=== PATIENT | male | born 2000 | race Caucasian/White ===

== ENCOUNTER 2021-03-26 12:30 | Emergency (ER) | payer OTHER ==
[~2021-03-26] VITALS: Wt 72.1 kg
[2021-03-26 13:15] LABS: BILIRUBIN Negative (Negative); BLOOD Negative (Negative); CLARITY Clear (Clear); COLOR Yellow (Yellow); GLUCOSE Negative (Negative); KETONE Negative (Negative); LEUKO ESTERASE 1+ (Negative); NITRITE Negative (Negative); SPECIFIC GRAVITY <= 1.005 (1.001-1.030); UROBILINOGEN 0.2 E.U./dl (0.0-1.0)
[2021-03-26 13:17] LABS: PH 8.5 (4.5-8.0)
[2021-03-26 13:18] LABS: ALBUMIN 4.4 gm/dl (3.1-4.5); ALKALINE PHOSPHATASE 94 U/L (45-117); BUN 6 mg/dl (7-24); CHLORIDE 107 mmol/L (98-107); CREATININE 0.98 mg/dL (0.70-1.30); POTASSIUM 3.7 mmol/L (3.5-5.1); SGOT/AST 50 IU/L (3-35); SGPT/ALT 72 U/L (12-78); SODIUM 139 mmol/L (136-145)
[2021-03-26 13:19] LABS: ETHYL ALCOHOL < 3.0 mg/dl (<3)
[2021-03-26 13:31] LABS: BASO % 0.5 % (0.0-1.0); EOS # 0.1 10*3/uL (0.0-0.4); EOS % 0.7 % (1.0-4.0); HEMATOCRIT 49.1 % (42.0-52.0); LYMPH # 1.9 10*3/uL (1.3-4.4); LYMPH % 25.1 % (27.0-41.0); MEAN CELL VOLUME 91.3 fl (80.0-94.0); MEAN CORPUSCULAR HGB 33.1 pg (27.0-31.0); MEAN CORPUSCULAR HGB CONC 36.3 g/dl (33.0-37.0); MEAN PLATELET VOLUME 9.6 fl (9.6-12.3); MONO # 0.5 10*3/uL (0.1-1.0); MONO % 6.8 % (3.0-9.0); NEUT # 5.1 10*3/uL (2.3-7.9); NEUT % 66.5 % (47.0-73.0); PLATELET COUNT AUTOMATED 307 10*3/uL (130-400); RED BLOOD COUNT 5.38 10*6/uL (4.50-5.90); RED CELL DISTRI WIDTH 13.9 % (0-14.5); WHITE BLOOD COUNT 7.6 10*3/uL (4.8-10.8)
[2021-03-26 13:44] LABS: BACTERIA TRACE; WBC 0-2 wbc/hpf (0-5)
[2021-03-26 13:49] LABS: URINE AMPHETAMINES < 1000 (1000ng/ml); URINE BARBITURATES < 200 (200ng/ml); URINE BENZODIAZEPINES < 200 (200ng/ml); URINE CANNABINOIDS (THC) < 50 (50ng/ml); URINE COCAINE < 300 (300ng/ml); URINE METHADONE < 300 (300ng/ml); URINE OPIATES < 300 (300ng/ml)
[2021-03-26 13:50] LABS: URINE PHENCYCLIDINE < 25 (25ng/ml)
== END 2021-03-26 14:32 | disposition home or self-care (01) ==
LOC: ED 12:30
PROVIDERS: Student in an Organized Health Care Education/Training Program
DX: R51.9 Headache, unspecified (principal); R42 Dizziness and giddiness

== ENCOUNTER 2022-07-16 13:42 | Emergency (ER) | payer OTHER ==
[~2022-07-16] VITALS: Ht 175.2 cm; Wt 63.5 kg
[2022-07-16 14:57] LABS: BASO % 0.3 % (0.0-1.0); EOS # 0.1 10*3/uL (0.0-0.4); EOS % 1.7 % (1.0-4.0); HEMATOCRIT 48.4 % (42.0-52.0); LYMPH # 1.6 10*3/uL (1.3-4.4); LYMPH % 24.9 % (27.0-41.0); MEAN CELL VOLUME 83.9 fl (80.0-94.0); MEAN CORPUSCULAR HGB CONC 35.7 g/dl (33.0-37.0); MEAN PLATELET VOLUME 9.8 fl (9.6-12.3); MONO # 0.4 10*3/uL (0.1-1.0); MONO % 6.3 % (3.0-9.0); NEUT # 4.2 10*3/uL (2.3-7.9); NEUT % 66.6 % (47.0-73.0); PLATELET COUNT AUTOMATED 287 10*3/uL (130-400); RED BLOOD COUNT 5.77 10*6/uL (4.50-5.90); WHITE BLOOD COUNT 6.3 10*3/uL (4.8-10.8)
[2022-07-16 15:15] LABS: ALKALINE PHOSPHATASE 72 U/L (46-116); BUN 6 mg/dl (9-23); CHLORIDE 107 mmol/L (98-107); LIPASE 35 U/L (12-53); POTASSIUM 3.8 mmol/L (3.4-5.1); SGPT/ALT 32 U/L (10-49); TOTAL PROTEIN 7.9 gm/dL (6.0-8.0)
[2022-07-16] MEDS ORDERED: DICYCLOMINE HCL10 MG PO (16:46)
== END 2022-07-16 17:01 | disposition home or self-care (01) ==
LOC: ED 13:42
PROVIDERS: Student in an Organized Health Care Education/Training Program
DX: R10.13 Epigastric pain (principal)

== ENCOUNTER 2023-04-11 22:18 | Emergency (ER) | payer OTHER ==
[~2023-04-11] VITALS: Ht 175.2 cm; Wt 67.1 kg
[~2023-04-11 22:18] MED LIST: DICYCLOMINE HCL10 MG PO
[2023-04-11 22:45] LABS: BASO % 0.4 % (0.0-1.0); EOS # 0.2 10*3/uL (0.0-0.4); EOS % 2.4 % (1.0-4.0); LYMPH # 2.6 10*3/uL (1.3-4.4); LYMPH % 32.6 % (27.0-41.0); MEAN CELL VOLUME 83.7 fl (80.0-94.0); MEAN CORPUSCULAR HGB 29.7 pg (27.0-31.0); MEAN CORPUSCULAR HGB CONC 35.5 g/dl (33.0-37.0); MEAN PLATELET VOLUME 9.2 fl (9.6-12.3); MONO # 0.6 10*3/uL (0.1-1.0); MONO % 7.4 % (3.0-9.0); NEUT # 4.6 10*3/uL (2.3-7.9); NEUT % 56.9 % (47.0-73.0); PLATELET COUNT AUTOMATED 304 10*3/uL (130-400); RED BLOOD COUNT 5.26 10*6/uL (4.50-5.90); RED CELL DISTRI WIDTH 11.9 % (0-14.5)
== END 2023-04-12 00:30 | disposition home or self-care (01) ==
LOC: ED 22:18
PROVIDERS: Internal Medicine
DX: J02.9 Acute pharyngitis, unspecified (principal)

== ENCOUNTER 2024-06-20 22:06 | Emergency (ER) | payer SELFPAY ==
[~2024-06-20] VITALS: Ht 175.2 cm; Wt 68.0 kg
== END 2024-06-21 00:14 | disposition left against medical advice (07) ==
LOC: ED 22:06
DX: J02.9 Acute pharyngitis, unspecified (principal); Z53.21 Procedure and treatment not carried out due to patient leaving prior to being seen by health care provider

== ENCOUNTER 2024-06-28 08:02 | Emergency (ER) | payer SELFPAY ==
[~2024-06-28] VITALS: Ht 175.2 cm; Wt 68.0 kg
[2024-06-28] MEDS ORDERED: Amoxicillin/Clavulanate Pota 875 MG TAB PO ONE (08:30)
[2024-06-28] MEDS ORDERED: AMOX-CLAV 875-1 EACH PO (08:32)
[2024-06-28] MEDS ORDERED: CIPROFLOXACIN HC5 ML OPH (08:32)
== END 2024-06-28 08:35 | disposition home or self-care (01) ==
LOC: ED 08:02
DX: H66.92 Otitis media, unspecified, left ear (principal); H60.92 Unspecified otitis externa, left ear; J02.9 Acute pharyngitis, unspecified

== ENCOUNTER 2024-07-16 13:45 | Emergency (ER) | payer OTHER ==
[~2024-07-16] VITALS: Ht 175.2 cm; Wt 64.4 kg
[~2024-07-16 13:45] MED LIST changes: +AMOX-CLAV 875-1 EACH PO; +CIPROFLOXACIN HC5 ML OPH
[2024-07-16] MEDS ORDERED: Ketorolac Tromethamine 30 MG/ML VIAL IM ONE (16:05)
[2024-07-16] MEDS ORDERED: METHOCARBAMOL750 M1 PO (18:00)
[2024-07-16] MEDS ORDERED: PREDNISONE20 M1 PO (18:00)
== END 2024-07-16 18:23 | disposition home or self-care (01) ==
LOC: ED 13:45
DX: S39.012A Strain of muscle, fascia and tendon of lower back, initial encounter (principal); Z79.899 Other long term (current) drug therapy; X50.9XXA Other and unspecified overexertion or strenuous movements or postures, initial encounter; Y93.89 Activity, other specified; Y92.89 Other specified places as the place of occurrence of the external cause; Y99.8 Other external cause status

== ENCOUNTER 2025-02-20 12:26 | Emergency (ER) | payer OTHER ==
[~2025-02-20] VITALS: Wt 65.8 kg
[~2025-02-20 12:26] MED LIST changes: +METHOCARBAMOL750 M1 PO; +PREDNISONE20 M1 PO
[2025-02-20] MEDS ORDERED: SODIUM CHLORIDE 0.9% 1,000 ML IV ONE (13:10)
[2025-02-20 13:32] LABS: BASO # 0.0 10*3/uL (0.0-0.1); BASO % 0.3 % (0.0-1.0); EOS # 0.1 10*3/uL (0.0-0.4); EOS % 1.9 % (1.0-4.0); MEAN CELL VOLUME 84.8 fl (80.0-94.0); MEAN CORPUSCULAR HGB 31.0 pg (27.0-31.0); MEAN PLATELET VOLUME 9.1 fl (9.6-12.3); MONO # 0.6 10*3/uL (0.1-1.0); MONO % 9.4 % (3.0-9.0); NEUT # 4.8 10*3/uL (2.3-7.9); NEUT % 71.5 % (47.0-73.0); NUCLEATED RED BLOOD CELL 0.0 % (0.0-0.0); NUCLEATED RED BLOOD CELL 0.0 10*3/uL (0.0-0.0); PLATELET COUNT AUTOMATED 233 10*3/uL (130-400); RED CELL DISTRI WIDTH 12.3 % (0-14.5)
[2025-02-20 13:52] LABS: BUN 12 mg/dl (9-23)
[2025-02-20] MEDS ORDERED: AVPAK AZITHROM250 M1 PO (16:02)
[2025-02-20] MEDS ORDERED: PREDNISONE20 M1 PO (16:02)
[2025-02-20] MEDS ORDERED: AZITHROMYCIN 250 MG TAB PO ONE (16:05)
== END 2025-02-20 16:13 | disposition home or self-care (01) ==
LOC: ED 12:26
PROVIDERS: Nurse Practitioner Family
DX: J40 Bronchitis, not specified as acute or chronic (principal); Z20.822 Contact with and (suspected) exposure to COVID-19; Z79.899 Other long term (current) drug therapy

== ENCOUNTER 2025-03-01 10:31 | Emergency (ER) | payer OTHER ==
[~2025-03-01 10:31] MED LIST changes: +AVPAK AZITHROM250 M1 PO
[2025-03-01] MEDS ORDERED: VALIUM10 MG PO (10:54)
== END 2025-03-01 11:01 | disposition home or self-care (01) ==
LOC: ED 10:31
DX: F41.9 Anxiety disorder, unspecified (principal); G47.00 Insomnia, unspecified